=== PATIENT | female | born 1985 | race Caucasian/White ===

== ENCOUNTER 2016-12-08 09:08 | Emergency (ER) ==
[2016-12-08 09:17] VITALS: BP 103/66; TEMP 97.6; BMI 30.7
--- NOTE | 2016-12-08 09:30 | ED.PDOC ---
General ED Provider: Dr. NICOLE MIRANDA Chief Complaint: Stated Complaint: 2 postive home tests in past week. Moderate vaginal bleeding x 3 days. No cramping. Palpated own cervix and felt a lump on it not previously present. Time Seen by Physician: 09:24 Mode of Arrival: Walk-In Information Source: Patient Exam Limitations: No limitations Nursing and Triage Documentation Reviewed and Agree: Yes LITIGATOR Complaint Exam - Vaginal Bleeding Complaint/Exam Onset/Duration: 3 days Symptoms Are: Still present Timing: Constant Initial Severity: Mild Current Severity: Moderate Character: Reports: Bright red Aggravating: Reports: None Alleviating: Reports: None Related History: Reports: Recent + test : 2 Para: 2 Hx Total # of Abortions (Spontaneous & Elective): 0 Ectopic Risk Factors: Reports: IUD use Spontaneous AB Risk Factors: Reports: None Placental Abruption Risk Factors: Reports: Smoking Patient Rh Status: Unknown Related Surgical History: Reports: None Abdominal Findings: Present: None Differential Diagnoses: Ectopic , Threatened AB, Incomplete AB Review of Systems - Review Of Systems Constitutional: Reports: No symptoms Respiratory: Reports: No symptoms Cardiac: Reports: No symptoms GI: Reports: No symptoms : Reports: Other (vaginal bleeding, lump palpated on cervix by patient) Musculoskeletal: Reports: No symptoms Skin: Reports: No symptoms Neurological: Reports: No symptoms All Other Systems: Reviewed and Negative Past Medical History - Past Medical History Previously Healthy: Yes Endocrine: Reports: None Cardiovascular: Reports: None Respiratory: Reports: None Hematological: Reports: None Gastrointestinal: Reports: None Genitourinary: Reports: None Neuro/Psych: Reports: None Musculoskeletal: Reports: None Cancer: Reports: None Last Menstrual Period: 11/01/16 - Surgical History General Surgical History: Reports: None - Family History Family History: Reports: None - Social History Smoking Status: Current every day smoker, Light tobacco smoker Hx Substance Use: No Alcohol Screening: None Lives: Alone - Immunizations Tetanus Shot up to Date: Yes Influenza Vaccine within 12 Months: No Pneumococcal Vaccine up to Date: No Physical Exam - Physical Exam Appearance: Well-appearing, No pain distress, Well-nourished Ill-appearing: None Pain Distress: None Eyes: REGAN, EOMI, Conjunctiva clear ENT: Ears normal, Nose normal, Oropharynx normal Neck: Supple Respiratory: Airway patent, Breath sounds clear, Breath sounds equal, Respirations nonlabored Cardiovascular: RRR, Pulses normal, No rub, No murmur GI/: Soft, Nontender, No masses, Bowel sounds normal, No Organomegaly Musculoskeletal: Normal strength, ROM intact, No edema, No calf tenderness Skin: Warm, Dry, Normal color Neurological: Sensation intact, Motor intact, Reflexes intact, Cranial nerves intact, Alert, Oriented Psychiatric: Affect appropriate, Mood appropriate Critical Care Note - Critical Care Note Total Time (mins): 0 Course - Course Orders, Labs, Meds: Lab Review 12/08/16 09:35 HCG, Quant 1.34 Urine Color Yellow Urine Clarity Cloudy Urine pH 7.5 Ur Specific [place] 1.020 Urine Protein 1+ Urine Glucose (UA) Negative Urine Ketones Negative Urine Blood 3+ Urine Nitrite Negative Urine Bilirubin Negative Urine Urobilinogen 0.2 Ur Leukocyte Esterase Trace Urine Microscopic RBC 20-30 Urine Microscopic WBC 0-2 Ur Squamous Epith Cells 0-2 Urine Bacteria Trace Orders Category Date Time Status HCG,QUANTITATIVE Stat LAB 12/08/16 09:35 Completed URINALYSIS C & S IF INDICATED Stat LAB 12/08/16 09:35 Completed Vital Signs: Temp Pulse Resp BP Pulse Ox 12/08/16 09:09 97.6 F 80 20 103/66 98 Departure - Departure Time of Disposition: 10:13 Disposition: HOME SELF-CARE Discharge Problem: Threatened Instructions: Threatened Miscarriage (ED) Condition: Good Pt referred to PMD for follow-up: Yes (follow up with PCP in 1 week for recheck and repeat blood test) Allergies/Adverse Reactions: Allergies No Known Allergies Allergy (Unverified 12/08/16 09:17) Home Medications: Ambulatory Orders 1 [No Reported Medications] 12/08/16
[2016-12-08 09:45] LABS: BILIRUBIN,URINE Negative (NEGATIVE); KETONES,URINE Negative (NEGATIVE); LEUKOCYTE ESTERASE ,URINE Trace (NEGATIVE); NITRITE,URINE Negative (NEGATIVE); PH,URINE 7.5 (5-9); PROTEIN,URINE 1+ (NEGATIVE); URINE, BLOOD 3+ (NEGATIVE)
[2016-12-08 09:49] LABS: ADD URINE MICROSCOPIC YES
[2016-12-08 09:51] LABS: BACTERIA,URINE TRACE (NOT PRESENT)
== END 2016-12-08 10:21 | disposition home or self-care (01) ==
LOC: ED 09:08
DX: O20.0 Threatened abortion (principal); F17.210 Nicotine dependence, cigarettes, uncomplicated
CPT/HCPCS: 36415; 81001; 84702; 99283

== ENCOUNTER 2017-03-25 23:34 | Outpatient (CLI) | END 2017-03-25 23:35 | disposition home or self-care (01) | LOC: AMBL 23:34 | PROVIDERS: ATTEND Family Medicine | DX: O60.12X0 Preterm labor second trimester with preterm delivery second trimester, not applicable or unspecified (principal); Z37.1 Single stillbirth ==

== ENCOUNTER 2017-11-28 15:52 | Emergency (ER) | payer OTHER ==
[2017-11-28 16:03] VITALS: BP 109/79; TEMP 97.1; BMI 30.3
--- NOTE | 2017-11-28 16:48 | ED.PDOC ---
General ED Provider: Dr. BENEDICT GILL Chief Complaint: Abscess Stated Complaint: Sustained wasp sting last week. Initially developed acute redness around site at rt medial knee. Swelling, no drainage. Pt applied red colored medication "from a sting kit." Itchy. Has also used hydrocortisone cream. No surrounding erythrema at present.No drainage Time Seen by Physician: 16:15 Mode of Arrival: Walk-In Information Source: Patient Exam Limitations: No limitations Primary Care Provider: ANGIE HE Nursing and Triage Documentation Reviewed and Agree: Yes Does patient meet sepsis criteria?: No System Inflammatory Response Syndrome: Not Applicable Sepsis Protocol: For patient's 13 years and over: Temp is 96.8 and below OR 101 and greater Pulse >90 BPM Resp >20/minute Acutely Altered Mental Status Are patient's symptoms suggestive of a new infection, such as: -Pneumonia -Skin, Soft Tissue -Endocarditis -UTI -Bone, Joint Infection -Implantable Device -Acute Abdominal Infection -Wound Infection -Meningitis -Blood Stream Catheter Infection -Unknown Skin Complaint Exam - Skin Rash/Itching Complaint/Exam Onset/Duration: 1 week Symptoms Are: Still present Initial Severity: Severe Current Severity: Moderate Location: Medial Rt Knee Potential Exposures: Reports: Insect bite (Wasp sting) Aggravating: Reports: None Alleviating: Reports: OTC creams/salves Associated Signs and Symptoms: Denies: Difficulty breathing, Fever, Chills Skin Findings: Present: Lesions Differential Diagnoses: Other (wasp sting. /no evidence of surrounding erythrema or warmth to touch) Review of Systems - Review Of Systems Constitutional: Reports: No symptoms Eyes: Reports: No symptoms Ears, Nose, Mouth, Throat: Reports: No symptoms Respiratory: Reports: No symptoms Cardiac: Reports: No symptoms GI: Reports: No symptoms : Reports: No symptoms Musculoskeletal: Reports: No symptoms Skin: Reports: Lesions Neurological: Reports: No symptoms Endocrine: Reports: No symptoms Hematologic/Lymphatic: Reports: No symptoms All Other Systems: Reviewed and Negative Past Medical History - Past Medical History Previously Healthy: Yes Endocrine: Reports: None Cardiovascular: Reports: None Respiratory: Reports: None Hematological: Reports: None Gastrointestinal: Reports: None Genitourinary: Reports: None Neuro/Psych: Reports: None Musculoskeletal: Reports: None Cancer: Reports: None Last Menstrual Period: first of Oct - Surgical History General Surgical History: Reports: None - Family History Family History: Reports: None - Social History Smoking Status: Current every day smoker, Light tobacco smoker Hx Substance Use: No Alcohol Screening: None - Immunizations Tetanus Shot up to Date: No Influenza Vaccine within 12 Months: No Pneumococcal Vaccine up to Date: No Physical Exam - Physical Exam Appearance: Well-appearing Ill-appearing: None Pain Distress: None Eyes: REGAN, EOMI, Conjunctiva clear ENT: Ears normal Neck: Supple Respiratory: Airway patent, Breath sounds clear, Breath sounds equal, Respirations nonlabored Cardiovascular: RRR, Pulses normal, No rub, No murmur GI/: Soft, Nontender, No masses, Bowel sounds normal, No Organomegaly Musculoskeletal: Normal strength, ROM intact, No edema, No calf tenderness Skin: Warm (area medial rt knee site of wasp sting), Dry, Normal color Neurological: Sensation intact, Motor intact, Reflexes intact, Cranial nerves intact, Alert, Oriented Critical Care Note - Critical Care Note Total Time (mins): 0 Course - Course Vital Signs: Temp Pulse Resp BP Pulse Ox 11/28/17 15:53 97.1 F L 88 18 109/79 99 Departure - Departure Time of Disposition: 16:50 Disposition: HOME SELF-CARE Discharge Problem: Wasp sting Instructions: Insect Bite or Sting (ED) Condition: Good Pt referred to PMD for follow-up: Yes IPMP verified?: No Additional Instructions: Keep wound clean and dry Take Benadryl 25 mg every 6 hrs for itching as needed Apply TAOintment to area daily If worsens return to er Allergies/Adverse Reactions: Allergies No Known Allergies Allergy (Verified 11/28/17 16:00) Home Medications: Ambulatory Orders 1 [No Reported Medications] 12/08/16 Disposition Discussed With: Patient
== END 2017-11-28 16:58 | disposition home or self-care (01) ==
LOC: ED 15:52
DX: T63.461A Toxic effect of venom of wasps, accidental (unintentional), initial encounter (principal); F17.210 Nicotine dependence, cigarettes, uncomplicated
CPT/HCPCS: 99282

== ENCOUNTER 2018-09-13 14:03 | Emergency (ER) ==
[2018-09-13 14:11] VITALS: BP 119/89; TEMP 96.8; BMI 28.0
--- NOTE | 2018-09-13 16:57 | ED.PDOC ---
General ED Provider: Dr. BENDEICT GILL Chief Complaint: Abdominal Pain Stated Complaint: Belching (bad Smelling ) and diarrhea/ States she recently consumed 1-2 # of cajun turkey(kept in a cooler). Denies voimiting, just lots of reflux Time Seen by Physician: 16:40 Mode of Arrival: Walk-In Information Source: Patient Exam Limitations: No limitations Nursing and Triage Documentation Reviewed and Agree: Yes Does patient meet sepsis criteria?: No System Inflammatory Response Syndrome: Not Applicable Sepsis Protocol: For patient's 13 years and over: Temp is 96.8 and below OR 101 and greater Pulse >90 BPM Resp >20/minute Acutely Altered Mental Status Are patient's symptoms suggestive of a new infection, such as: -Pneumonia -Skin, Soft Tissue -Endocarditis -UTI -Bone, Joint Infection -Implantable Device -Acute Abdominal Infection -Wound Infection -Meningitis -Blood Stream Catheter Infection -Unknown GI Complaint Exam - Vomiting/Diarrhea Complaint/Exam Symptoms Are: Still present (Gastric reflux , No emesis) Episodes of Diarrhea Over Last 24 Hours: 4 Initial Severity: Moderate Character of Diarrhea: Reports: Watery, Malodorous Aggravating: Reports: Food, Liquids Alleviating: Reports: None Associated Signs and Symptoms: Reports: Cramping. Denies: Dizziness, Light- headedness, Melena, Hematemesis, Fever, Abdominal pain Surgical Obstruction Risk Factors: Reports: None Related Surgical History: Reports: None Abdominal Findings: Present: None, Other (BS active-= no localized guarding. ) [place] Respirations Present: No Differential Diagnoses: Gastritis, Bacterial Gastroenteritis, Other Review of Systems - Review Of Systems Constitutional: Reports: No symptoms Eyes: Reports: No symptoms Ears, Nose, Mouth, Throat: Reports: No symptoms Respiratory: Reports: No symptoms Cardiac: Reports: No symptoms GI: Reports: No symptoms, Diarrhea, Nausea, Other (reflux) : Reports: No symptoms Musculoskeletal: Reports: No symptoms Skin: Reports: No symptoms Neurological: Reports: No symptoms Endocrine: Reports: No symptoms Hematologic/Lymphatic: Reports: No symptoms All Other Systems: Reviewed and Negative Past Medical History - Past Medical History Previously Healthy: Yes Endocrine: Reports: None Cardiovascular: Reports: None Respiratory: Reports: None Hematological: Reports: None Gastrointestinal: Reports: None Genitourinary: Reports: None Neuro/Psych: Reports: None Musculoskeletal: Reports: None Cancer: Reports: None Last Menstrual Period: almost a month ago. should be starting any time - Surgical History General Surgical History: Reports: None - Family History Family History: Reports: None - Social History Smoking Status: Current every day smoker Hx Substance Use: No Alcohol Screening: None - Immunizations Tetanus Shot up to Date: No Influenza Vaccine within 12 Months: No Pneumococcal Vaccine up to Date: No Physical Exam - Physical Exam Appearance: Well-appearing, Obese Ill-appearing: None Pain Distress: None Eyes: REGAN, EOMI, Conjunctiva clear ENT: Ears normal, Nose normal, Oropharynx normal Neck: Supple Respiratory: Airway patent, Breath sounds clear, Breath sounds equal, Respirations nonlabored Cardiovascular: RRR, Pulses normal, No rub, No murmur GI/: Soft, Nontender, No masses, No Organomegaly, Bowel sounds hyperactive Musculoskeletal: Normal strength, ROM intact, No edema, No calf tenderness Skin: Warm, Dry, Normal color Neurological: Sensation intact, Motor intact, Reflexes intact, Cranial nerves intact, Alert, Oriented Psychiatric: Affect appropriate, Mood appropriate Critical Care Note - Critical Care Note Total Time (mins): 0 Course - Course Hematology/Chemistry: 09/13/18 17:08 09/13/18 17:08 Orders, Labs, Meds: Lab Review 09/13/18 09/13/18 09/13/18 17:08 17:08 17:20 WBC 9.92 RBC 5.38 Hgb 16.1 H Hct 49.0 H MCV 91.1 MCH 29.9 MCHC 32.9 RDW Coeff of Brian 12.8 Plt Count 262 Immature Gran % (Auto) 0.2 Neut % (Auto) 64.8 Lymph % (Auto) 26.0 [place] % (Auto) 6.5 Eos % (Auto) 2.3 Baso % (Auto) 0.2 Immature Gran # (Auto) 0.0 Neut # (Auto) 6.4 Lymph # (Auto) 2.6 [place] # (Auto) 0.6 Eos # (Auto) 0.2 Baso # (Auto) 0.0 Sodium 136.3 Potassium 3.96 Chloride 102.6 Carbon Dioxide 20.8 L Anion Gap 16.86 BUN 16.4 Creatinine 0.67 Estimated GFR (MDRD) 102.00 BUN/Creatinine Ratio 24.47 Glucose 75.6 Calcium 9.08 Total Bilirubin 0.52 AST 16.5 ALT 14.9 Alkaline Phosphatase 47.8 Total Protein 8.03 Albumin 4.65 Globulin 3.38 Albumin/Globulin Ratio 1.37 Urine Color Yellow Urine Clarity Clear Urine pH 5.5 Ur Specific [place] 1.025 Urine Protein Negative Urine Glucose (UA) Negative Urine Ketones Negative Urine Blood Negative Urine Nitrite Negative Urine Bilirubin Negative Urine Urobilinogen 0.2 Ur Leukocyte Esterase Negative Urine Test Urine Opiates Screen Ur Oxycodone Screen Urine Methadone Screen Ur Propoxyphene Screen Ur Barbiturates Screen U Tricyclic Antidepress Ur Phencyclidine Scrn Ur Amphetamine Screen U Methamphetamines Scrn U Benzodiazepines Scrn Urine Cocaine Screen U Cannabinoids Screen 09/13/18 09/13/18 17:20 17:20 WBC RBC Hgb Hct MCV MCH MCHC RDW Coeff of Brian Plt Count Immature Gran % (Auto) Neut % (Auto) Lymph % (Auto) [place] % (Auto) Eos % (Auto) Baso % (Auto) Immature Gran # (Auto) Neut # (Auto) Lymph # (Auto) [place] # (Auto) Eos # (Auto) Baso # (Auto) Sodium Potassium Chloride Carbon Dioxide Anion Gap BUN Creatinine Estimated GFR (MDRD) BUN/Creatinine Ratio Glucose Calcium Total Bilirubin AST ALT Alkaline Phosphatase Total Protein Albumin Globulin Albumin/Globulin Ratio Urine Color Urine Clarity Urine pH Ur Specific [place] Urine Protein Urine Glucose (UA) Urine Ketones Urine Blood Urine Nitrite Urine Bilirubin Urine Urobilinogen Ur Leukocyte Esterase Urine Test Negative Urine Opiates Screen Negative Ur Oxycodone Screen Negative Urine Methadone Screen Negative Ur Propoxyphene Screen Negative Ur Barbiturates Screen Negative U Tricyclic Antidepress Negative Ur Phencyclidine Scrn Negative Ur Amphetamine Screen Positive U Methamphetamines Scrn Positive U Benzodiazepines Scrn Positive Urine Cocaine Screen Negative U Cannabinoids Screen Negative Orders Category Date Time Status CBC W/ AUTO DIFF Stat LAB 09/13/18 17:08 Completed CMP [COMPREHENSIVE METABOLIC PANEL] Stat LAB 09/13/18 17:08 Completed UA [URINALYSIS C & S IF INDICATED] Stat LAB 09/13/18 17:20 Completed URINE DRUG SCREEN (RAPID FOR ED) [DRUG SCREEN, URINE, LAB 09/13/18 17:20 Completed RAPID] Stat URINE Stat LAB 09/13/18 17:20 Completed ABDOMEN, SERIES FLAT & UPRIGHT Stat RADS 09/13/18 16:56 Ordered Vital Signs: Temp Pulse Resp BP Pulse Ox 09/13/18 14:04 96.8 F L 72 18 119/89 96 Departure - Departure Time of Disposition: 17:25 Disposition: AMA Discharge Problem: Abdominal pain, Diarrhea Instructions: Against Medical Advice (ED) Condition: Stable Pt referred to PMD for follow-up: No IPMP verified?: No Additional Instructions: Follow up with your Dr Allergies/Adverse Reactions: Allergies No Known Allergies Allergy (Verified 09/13/18 16:02) Home Medications: Ambulatory Orders 1 [No Reported Medications] 12/08/16 Additional Comments Additional Comments: patient with a male subject and wanted to go out to smoke/ requesed beverages. advised due to her GI symptom do not recommend po liquids until workup completed/. Patient exited department without comment
[2018-09-13 17:40] LABS: URINE PREGNANCY TEST NEGATIVE (NEGATIVE)
== END 2018-09-13 17:25 | disposition left against medical advice (07) ==
LOC: ED 14:03
DX: R10.9 Unspecified abdominal pain (principal); R19.7 Diarrhea, unspecified; R14.2 Eructation; F17.210 Nicotine dependence, cigarettes, uncomplicated
CPT/HCPCS: 36415; 80053; 80306; 81001; 81025; 85025; 99284